=== PATIENT | male | born 1950 | race Caucasian/White ===

== ENCOUNTER → 2024-08-24 14:32 | Outpatient (REF) | payer MEDICARE, OTHER, SELFPAY ==
[2024-08-24 16:16] LABS: PSA, Total - Diagnostic 1.67 ng/ml (0.0-4.0)
== END ==
LOC: REG 14:32
PROVIDERS: ATTENDING PHYSICIAN Surgery; FAMILY PHYSICIAN Family Medicine
DX: Z12.5 Encounter for screening for malignant neoplasm of prostate (principal); N40.1 Benign prostatic hyperplasia with lower urinary tract symptoms
CPT/HCPCS: 36415; 84153